=== PATIENT | female | born 1975 | race Caucasian/White ===

== ENCOUNTER 2018-06-09 05:36 | Inpatient (IN) | payer OTHER ==
[2018-06-09] MEDS: LACTATED RINGER'S 1,000 ML IV ×4 (06:58→22:22)
[2018-06-09] MEDS ORDERED: EPHEDrine SULFATE 50 MG/5 ML SYG (07:00)
[2018-06-09] MEDS ORDERED: ACETAMINOPHEN 1000 MG/100 ML IVPB (07:00)
[2018-06-09] MEDS ORDERED: DEXTROSE 5%-0.9% NACL 1,000 ML IV (07:00)
[2018-06-09] MEDS ORDERED: CEFAZOLIN 1 GM INJ (07:00)
[2018-06-09] MEDS ORDERED: HETASTARCH 6% NACL 500 ML BAG (07:00)
[2018-06-09] MEDS ORDERED: MIDAZOLAM 1 MG/ML 2 ML INJ (07:32)
[2018-06-09] MEDS ORDERED: morphine SULFATE/PF (10 MG/10 ML) INJ (07:32)
[2018-06-09] MEDS ORDERED: BUPIVACAINE 0.75%/DEXT (SPINAL) 2 ML INJ (07:32)
[2018-06-09] MEDS ORDERED: FENTAnyl 50 MCG/ML VIAL (07:46)
[2018-06-09] MEDS ORDERED: PHENYLephrine (100 MCG/ML) 5ML SYG ×2 (07:50→08:19)
[2018-06-09] MEDS ORDERED: METOCLOPRAMIDE 10 MG INJ IV (08:30)
[2018-06-09] MEDS ORDERED: NALOXONE (0.4 MG/ML) INJ IV (08:30)
[2018-06-09] MEDS ORDERED: HYDROmorphONE 0.5 MG/0.5 ML SYG IV ×3 (08:30→11:00)
[2018-06-09] MEDS ORDERED: KETOROLAC 30 MG INJ IV ×2 (08:30)
[2018-06-09] MEDS ORDERED: ONDANSETRON 4 MG INJ IV (08:30)
[2018-06-09] MEDS ORDERED: EPHEDrine SULFATE 50 MG/5 ML SYG IV (08:30)
[2018-06-09] MEDS ORDERED: ALBUMIN HUMAN 5% 250 ML IV (08:30)
[2018-06-09] MEDS ORDERED: LABETALOL HCL 20MG INJ IV (08:30)
[2018-06-09] MEDS ORDERED: ACETAMINOPHEN 500 MG TAB PO (08:30)
[2018-06-09] MEDS ORDERED: FENTAnyl 50 MCG/ML VIAL IV ×2 (08:30)
[2018-06-09] MEDS ORDERED: HYDROmorphONE 1 MG/5 ML IV SYRINGE IV ×3 (08:30)
[2018-06-09] MEDS ORDERED: DIPHENHYDRAMINE 50 MG INJ IV (08:30)
[2018-06-09] MEDS ORDERED: MEPERIDINE 25 MG INJ IV (08:30)
[2018-06-09] MEDS ORDERED: NALBUPHINE HCL (10 MG/1 ML) INJ IV (08:30)
[2018-06-09] MEDS ORDERED: morphine 2 MG INJ IV ×2 (08:30)
[2018-06-09] MEDS ORDERED: hydrALAzine 20 MG INJ IV (08:30)
[2018-06-09] MEDS ORDERED: HYDROCODONE/APAP (5/325) TAB PO ×3 (08:30→11:00)
[2018-06-09] MEDS ORDERED: OXYCODONE/ACETAMINOPHEN (5/325) TAB PO ×2 (08:30)
[2018-06-09] MEDS ORDERED: KETOROLAC 30 MG INJ (09:09)
[2018-06-09] MEDS ORDERED: DEXAMETHASONE 4 MG/ML 1 ML INJ (09:09)
[2018-06-09] MEDS ORDERED: METOCLOPRAMIDE 10 MG INJ (09:09)
[2018-06-09] MEDS ORDERED: ONDANSETRON 4 MG INJ (09:09)
[2018-06-09] MEDS ORDERED: ROPIVACAINE 0.2% 20 ML VIAL (09:16)
[2018-06-09] MEDS ORDERED: ROPIVACAINE 0.5 % 30 ML VIAL (09:17)
[2018-06-09] MEDS ORDERED: THROMBIN 5000 UNIT VIAL (09:18)
[2018-06-09] MEDS ORDERED: ROCURONIUM 50 MG INJ (09:30)
[2018-06-09] MEDS ORDERED: PROPOFOL 20 ML (09:30)
[2018-06-09] MEDS: THROMBIN 5000 UNIT VIAL TOP (09:33)
[2018-06-09] MEDS ORDERED: SUGAMMADEX SODIUM 200 MG/2 ML VIAL IV (10:22)
[2018-06-09] MEDS ORDERED: DIPHENHYDRAMINE 50 MG CAP PO (11:00)
[2018-06-09] MEDS: FENTAnyl 50 MCG/ML VIAL IV ×2 (11:04→11:13)
[2018-06-09] MEDS: DIPHENHYDRAMINE 50 MG INJ IV (11:04)
[2018-06-09] MEDS ORDERED: GLUCOSE GEL 15 GRAM TUBE PO ×2 (12:30)
[2018-06-09] MEDS ORDERED: GLUCOSE GEL 15 GRAM TUBE BUCCAL (12:30)
[2018-06-09] MEDS ORDERED: GLUCAGON 1 MG INJ IM (12:30)
[2018-06-09] MEDS ORDERED: DEXTROSE 50% 50 ML SYRINGE IV ×2 (12:30)
[2018-06-09] MEDS: CEFAZOLIN 1 GM/50 ML (PMX) 50 ML IVPB ×2 (14:07→22:22)
[2018-06-09] MEDS: ONDANSETRON 4 MG INJ IV ×2 (17:39→22:30)
[2018-06-09] MEDS: metFORMIN 500 MG TAB PO (17:43)
[2018-06-09] MEDS: CEFAZOLIN 2 GM/50 ML (PMX) 50 ML IVPB (20:00)
[2018-06-09] MEDS: INSULIN ASPART [NOVOLOG] 3 ML PEN SC ×2 (20:50→22:26)
[2018-06-09] MEDS: INSULIN GLARGINE [LANTus] (100 UNITS/ML) SYG SC (20:55)
[2018-06-09] MEDS ORDERED: [UNRECOGNIZED DRUG - OTHER] SC (21:00)
[2018-06-09] MEDS ORDERED: INSULIN GLARGINE HUM REC ANLOG SC (21:00)
[2018-06-10] MEDS: ACCU-CHEK XX (02:35)
[2018-06-10] MEDS: LACTATED RINGER'S 1,000 ML IV (05:29)
[2018-06-10] MEDS: KETOROLAC 30 MG INJ IV ×3 (05:29→19:01)
[2018-06-10] MEDS: CEFAZOLIN 1 GM/50 ML (PMX) 50 ML IVPB ×3 (05:30→21:43)
[2018-06-10 05:46] LABS: ADD MAN DIFF? NO
[2018-06-10 06:05] LABS: ABNORMAL IP MESSAGE 1; BASOPHILS % 0.1 % (0.0-2.0); HEMATOCRIT 14.4 % (37.0-47.0); LYMPHOCYTES # 1.9 10^3/ul (0.8-2.9); MEAN CORPUSCULAR HEMOGLOBIN 24.9 pg (29.0-33.0); MEAN CORPUSCULAR HGB CONC 31.3 g/dl (32.0-37.0); MEAN CORPUSCULAR VOLUME 79.6 fl (82.0-101.0); MEAN PLATELET VOLUME 10.5 fl (7.4-10.4); MONOCYTE # 0.8 10^3/ul (0.3-0.9); MONOCYTES % 8.9 % (0.0-11.0); NEUTROPHIL # 6.3 10^3/ul (1.6-7.5); NEUTROPHILS % 69.7 % (39.0-77.0); PLATELET COUNT 280 10^3/UL (140-415); RED BLOOD COUNT 1.81 10^6/ul (4.20-5.40); RED CELL DISTRIBUTION WIDTH 16.6 % (11.5-14.5)
[2018-06-10 06:10] LABS: HEMOGLOBIN 4.5 g/dl (12.0-16.0); POSITIVE DIFF @See below
[2018-06-10 06:46] LABS: ANION GAP 12 (8-16); BLOOD UREA NITROGEN 12 mg/dl (7-20); CARBON DIOXIDE 22 mmol/L (21-31); CHLORIDE 109 mmol/L (97-110); CREATININE 0.79 mg/dl (0.44-1.00); POTASSIUM 4.3 mmol/L (3.5-5.1); SODIUM 139 mmol/L (135-144)
[2018-06-10] MEDS ORDERED: ONDANSETRON INJ 6 MG in DEXTROSE 5% 50 ML IVPB (07:31)
[2018-06-10 07:47] LABS: ANISOCYTOSIS 2+ (0-0); BAND NEUTROPHILS #M 0.4 10^3/ul (0.0-0.6); BAND NEUTROPHILS % (M) 5 % (0-4); BASOPHILS % (M) 1 % (0-2); HYPOCHROMASIA 1+ (0-0); LYMPHOCYTES #M 2.7 10^3/ul (0.8-2.9); LYMPHOCYTES % (M) 30 % (15-51); MONOCYTE #M 0.5 10^3/ul (0.3-0.9); MONOCYTES % (M) 6 % (0-11); PLATELET ESTIMATE NORMAL; POLYCHROMASIA 3+ (0-0); SEG NEUT #M 5.3 10^3/ul (1.6-7.5); SEGMENTED NEUTROPHILS (M) % 58 % (39-77); SMUDGE%M 7 % (0-0)
[2018-06-10] MEDS: INSULIN ASPART [NOVOLOG] 3 ML PEN SC ×4 (07:50→21:00)
[2018-06-10] MEDS: metFORMIN 500 MG TAB PO ×2 (08:31→17:06)
[2018-06-10] MEDS: METOCLOPRAMIDE 10 MG TAB PO ×3 (08:31→17:08)
[2018-06-10 12:08] LABS: IMMEDIATE SPIN CROSSMATCH 1 3
[2018-06-10] MEDS: SOD CHLORIDE 0.9% 1,000 ML IV (12:12)
[2018-06-10] MEDS: FUROSEMIDE 20 MG INJ IV (15:57)
[2018-06-10] MEDS: IODIXANOL LOCM 100 ML BTL (16:35)
[2018-06-10] MEDS: SOD CHLORIDE 0.9% 100 ML ×2 (16:35→16:39)
[2018-06-10] MEDS: IOHEXOL 300MG/ML 150 ML BTL (16:39)
[2018-06-10] MEDS ORDERED: ZOLPIDEM 5 MG TAB PO (21:00)
[2018-06-10] MEDS: INSULIN GLARGINE [LANTus] (100 UNITS/ML) SYG SC (21:44)
[2018-06-10 23:21] LABS: HEMOGLOBIN 8.4 g/dl (12.0-16.0)
[2018-06-11] MEDS: METOCLOPRAMIDE 10 MG TAB PO ×4 (00:15→17:49)
[2018-06-11] MEDS: SOD CHLORIDE 0.9% 1,000 ML IV ×2 (01:08→16:06)
[2018-06-11] MEDS: KETOROLAC 30 MG INJ IV ×4 (01:08→20:35)
[2018-06-11] MEDS: ACCU-CHEK XX (01:09)
[2018-06-11] MEDS: CEFAZOLIN 1 GM/50 ML (PMX) 50 ML IVPB (05:57)
[2018-06-11] MEDS: metFORMIN 500 MG TAB PO ×2 (07:55→17:49)
[2018-06-11] MEDS: INSULIN ASPART [NOVOLOG] 3 ML PEN SC ×4 (07:55→20:35)
[2018-06-11 08:39] LABS: ADD MAN DIFF? NO
[2018-06-11 08:41] LABS: BASOPHILS % 0.3 % (0.0-2.0); EOSINOPHILS # 0.2 10^3/ul (0.0-0.5); EOSINOPHILS % 1.3 % (0.0-7.0); HEMATOCRIT 24.2 % (37.0-47.0); HEMOGLOBIN 8.1 g/dl (12.0-16.0); LYMPHOCYTES # 1.9 10^3/ul (0.8-2.9); LYMPHOCYTES % 16.9 % (15.0-51.0); MEAN CORPUSCULAR HEMOGLOBIN 28.1 pg (29.0-33.0); MEAN CORPUSCULAR HGB CONC 33.5 g/dl (32.0-37.0); MEAN PLATELET VOLUME 10.5 fl (7.4-10.4); MONOCYTE # 0.9 10^3/ul (0.3-0.9); MONOCYTES % 8.4 % (0.0-11.0); NEUTROPHIL # 8.1 10^3/ul (1.6-7.5); NEUTROPHILS % 72.6 % (39.0-77.0); PLATELET COUNT 278 10^3/UL (140-415); RED BLOOD COUNT 2.88 10^6/ul (4.20-5.40); RED CELL DISTRIBUTION WIDTH 16.3 % (11.5-14.5)
[2018-06-11 08:41] LABS: WHITE BLOOD COUNT 11.2 10^3/ul (4.8-10.8)
[2018-06-11] MEDS: SOD FERRIC GLUC COMPLX 125 MG in SOD CHLORIDE 0.9% 100 ML IVPB (16:29)
[2018-06-11] MEDS: INSULIN GLARGINE [LANTus] (100 UNITS/ML) SYG SC (20:39)
[2018-06-12] MEDS: METOCLOPRAMIDE 10 MG TAB PO ×4 (00:23→17:11)
[2018-06-12] MEDS: ACCU-CHEK XX (01:55)
[2018-06-12] MEDS: KETOROLAC 30 MG INJ IV (01:55)
[2018-06-12] MEDS: metFORMIN 500 MG TAB PO ×2 (07:55→17:11)
[2018-06-12] MEDS: INSULIN ASPART [NOVOLOG] 3 ML PEN SC ×3 (07:55→17:11)
[2018-06-12] MEDS: SOD CHLORIDE 0.9% 1,000 ML IV (07:58)
[2018-06-12] MEDS: SOD FERRIC GLUC COMPLX 125 MG in SOD CHLORIDE 0.9% 100 ML IVPB (16:05)
== END 2018-06-12 18:25 | disposition home or self-care (01) | DRG 742 ==
LOC: REC 05:36 → TEL 06-10 07:30 → MS1 11:45
PROVIDERS: Obstetrics & Gynecology
PROC: 0UT90ZZ Resection of Uterus, Open Approach (ICD-10-PCS; principal; 2018-06-09 07:30)
PROC: 0UT70ZZ Resection of Bilateral Fallopian Tubes, Open Approach (ICD-10-PCS; 2018-06-09 07:30)
PROC: 30233N1 Transfusion of Nonautologous Red Blood Cells into Peripheral Vein, Percutaneous Approach (ICD-10-PCS; 2018-06-09 07:30)
DX: D25.9 Leiomyoma of uterus, unspecified (principal); D62 Acute posthemorrhagic anemia; E11.9 Type 2 diabetes mellitus without complications; N92.1 Excessive and frequent menstruation with irregular cycle; N80.0 Endometriosis of uterus; D50.0 Iron deficiency anemia secondary to blood loss (chronic)
CPT/HCPCS: 36430; 71045; 74177; 80051; 82565; 82962; 84520; 84703; 85014; 85018; 85025; 86850; 86900; 86901; 86920; 87086; 88305; 93005